=== PATIENT | female | born 1970 | race African-American/Black ===

== ENCOUNTER 2021-09-23 12:41 | Outpatient (RCR) | payer BC, SELFPAY ==
--- NOTE | 2021-09-23 13:55 | OTOPEVAL ---
OCCUPATIONAL THERAPY INITIAL EVALUATION REPORT 09/23/21 Carol Ann referred to outpatient OT with bilateral forearm pain. Signs and symptoms are consistent with ulnar nerve irritation without evident muscle atrophy or paresthesias. Her biggest complaint is the intermittent zinging pains she gets with particular movements. Today she was educated on body mechanics and ergonomics to help restrict further nerve compression and irritation. She was also issued nerve glide exercises. Plan to have her implement the new body shop manager techniques and ergonomics in her daily life and at work over the course of the next month. We will follow up in a month to see the effectiveness of this intervention. Thank you for referring Carol Ann Ledbetter to [facility].? The patient is scheduled to be seen for therapy? 0-1x/week for 5 weeks. Please review, sign, date and return this plan of care CHAITANYA. I agree with and certify that the following plan of care is medically necessary. Referring Physician Date Referring Provider: Juan Carlos Sarabia MD *OT Outpatient Evaluation Start: 09/23/21 12:46 Evaluation Information Problem Diagnosis Chronic bilateral forearm aching and weakness Onset ~2.5 years Subjective Information Patient reports bilateral Query Text:As Reported By Patient/ forearm pain that comes and Family goes - will be a two week flair up of pain and then it will go away. 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 She reports not using any wrist supports or having an ergonomic set up at her desk at home or at school. She reports no trauma to the arms or neck and reports no numbness. States her pains are quick sharp, lightning, zings pointing to the anterior forearm near the wrist and up to the elbow. 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
--- NOTE | 2021-10-24 16:04 | PCOTNOTE ---
Patient called & cancelled scheduled appointment this date. She left a voicemail 10 min after her appt time to say she wasn't going to be able to make it.
--- NOTE | 2021-10-30 09:21 | OTOPDC ---
OCCUPATIONAL THERAPY DISCHARGE NOTIFICATION 10/30/21 Patient:Carol Ann Ledbetter Date of :1970 Patient has not returned for any further treatments since her initial evaluation on 09/23/2021, therefore she will be discharged at this time. The goals have not been assessed. Thank you for referring this patient to [facility]. Please review, sign, date and return this discharge summary CHAITANYA. I have been updated about the patient's current status and I agree with discharge from the above service at this time. Referring Physician Date Referring Provider: Juan Carlos Sarabia MD
== END 2021-10-31 08:50 | disposition home or self-care (01) ==
LOC: ANHOT 12:41
PROVIDERS: PCP Internal Medicine; Referring Provider Plastic Surgery; Visit Provider Plastic Surgery
DX: R53.1 Weakness (principal); M79.632 Pain in left forearm; M79.631 Pain in right forearm
CPT/HCPCS: 97110; 97165; 99199

== ENCOUNTER 2022-03-09 00:11 | Day surgery (SDC) | payer BC, SELFPAY ==
[2022-02-20 16:03] VITALS: BMI 33.3
[2022-03-09 12:04] VITALS: BP 135/90; PULSE 70; RESP 18; TEMP 36; O2SAT 99
[2022-03-09] MEDS: LACTATED RINGERS 1,000 ML 150 ML IV CONT (12:15)
--- NOTE | 2022-03-09 12:47 | WPDANESEPPF ---
Anes - Initial Pre Proc Eval Procedure: Operation Date: 03/09/22 13:30 Proposed Procedures p Screening Colonoscopy - Rivas Velásquez MD Date/Time: 03/09/22 12:47 Surgeon: Rivas Velásquez MD Pre Op Diagnosis: neoplasm screening Patient Data Age: 51 Gender: F Height: 1.65 m Weight: 90.2 kg Last Vital Signs Temp 96.8 F L 03/09/22 12:04 Pulse 70 03/09/22 12:04 Resp 18 03/09/22 12:04 BP 135/90 03/09/22 12:04 Pulse Ox 99 03/09/22 12:04 O2 Del Method Room Air 03/09/22 12:04 Allergies Allergy/AdvReac Type Severity Reaction Status Date / Time metronidazole [From Flagyl] Allergy Intermediate Rash Verified 03/09/22 12:02 Home Medications Medication Instructions Recorded Confirmed Type cholecalciferol (vitamin D3) 25 25 mcg PO DAILY 11/13/21 03/09/22 History mcg (1,000 unit) capsule fluticasone propionate 50 1 spray intranasal BID 11/13/21 03/09/22 History mcg/actuation nasal spray,suspension (Flonase Allergy Relief) montelukast 10 mg tablet 10 mg PO DAILY 11/13/21 03/09/22 History vitamin B complex (B 1 tablet PO DAILY 11/13/21 03/09/22 History Complex-Vitamin B12 tablet) triamterene 37.5 1 cap PO DAILY #90 caps 02/26/22 03/09/22 Rx mg-hydrochlorothiazide 25 mg capsule azithromycin 250 mg tablet 250 mg PO DIRECTED #6 tabs 03/05/22 03/09/22 Rx cetirizine 10 mg tablet 10 mg PO DAILY PRN allergy 03/05/22 03/09/22 Rx symptoms #90 tabs methylprednisolone 4 mg tablets in See Rx Instructions PO PER PKG DIR 03/05/22 03/09/22 Rx a dose pack (Medrol (Sathish)) #21 ea Patient hx anesthesia problems: none Family hx anesthesia problems: none Results Review: All pre-operative results and documents have been reviewed as part of the pre-operative evaluation. [facility] Past Medical History Medical History (Updated 03/05/22 @ 16:38 by Sylvia Carranza DO) HTN (hypertension) Seasonal allergies Family History Family History (Updated 11/13/21 @ 15:53 by Brianna Cortez MA) Mother Diabetes mellitus Hypertension Heart disease Father Lupus Grandparent Carcinoma of colon Diabetes mellitus Hypertension Heart disease Cerebrovascular accident Sibling Hypertension Social History Social History (Updated 11/13/21 @ 15:56 by Brianna Cortez MA) Smoking status: Never smoker Alcohol intake: current Drinks per week: 4 Alcohol use details: Drink on weekends Substance use: never Substance use type: does not use Living arrangements: with family 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 Informed Consent: The patient's anesthetic plan and its attendant risks and benefits were discussed with the patient/family/POA. Questions were solicited and answers provided to the satisfaction of the patient/family/POA.
--- NOTE | 2022-03-09 13:35 | PM.HPGS ---
History of Present Illness History of Present Illness Consent: Risks, benefits, and alternatives have been discussed and questions answered. Patient agrees to proceed with procedure. Chief complaint: neoplasm screening Narrative: Carol Ann Ledbetter is a 51 year old female here for screening colonoscopy (she had one in her 20's but for gi issues) Review of Systems Constitutional: Constitutional: Denies headache(s) and Denies weakness Eyes: Eyes: Denies blurry vision ENT: Reports Normal hearing present, Denies headache(s) and Denies neck pain Cardiovascular: Cardiovascular: Denies chest pain and Denies dyspnea Respiratory: Respiratory: Denies dyspnea Gastrointestinal: Gastrointestinal: Reports no additional gastrointestinal complaints Genitourinary: Genitourinary: Denies dysuria Musculoskeletal: Musculoskeletal: Denies neck pain Integumentary/Breasts: Skin/Breast: Denies dry skin Neurologic: Reports Normal hearing present, Denies headache(s) and Denies weakness Psychiatric: Psychiatric: Denies anxiety Endocrine: Endocrine: Denies change in body appearance Hematologic/Lymphatic: Hematologic/Lymphatic: Denies easy bleeding Allergic/Immunologic: Allergic/Immunologic: Denies urticaria PMFSH Past Medical History Medical History (Updated 03/05/22 @ 16:38 by Sylvia Carranza DO) HTN (hypertension) Seasonal allergies Family History Family History (Updated 11/13/21 @ 15:53 by Brianna Cortez MA) Mother Diabetes mellitus Hypertension Heart disease Father Lupus Grandparent Carcinoma of colon Diabetes mellitus Hypertension Heart disease Cerebrovascular accident Sibling Hypertension Social History Social History (Updated 11/13/21 @ 15:56 by Brianna Cortez MA) Smoking status: Never smoker Alcohol intake: current Drinks per week: 4 Alcohol use details: Drink on weekends Substance use: never Substance use type: does not use Living arrangements: with family 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 Gender identity (if verbalized by the patient): Female Spiritual care concerns: No Agree to blood products: Yes Meds Home Medications and Allergies Home Medications Medication Instructions Recorded Confirmed Type cholecalciferol (vitamin D3) 25 25 mcg PO DAILY 11/13/21 03/09/22 History mcg (1,000 unit) capsule fluticasone propionate 50 1 spray intranasal BID 11/13/21 03/09/22 History mcg/actuation nasal spray,suspension (Flonase Allergy Relief) montelukast 10 mg tablet 10 mg PO DAILY 11/13/21 03/09/22 History vitamin B complex (B 1 tablet PO DAILY 11/13/21 03/09/22 History Complex-Vitamin B12 tablet) triamterene 37.5 1 cap PO DAILY #90 caps 02/26/22 03/09/22 Rx mg-hydrochlorothiazide 25 mg capsule azithromycin 250 mg tablet 250 mg PO DIRECTED #6 tabs 03/05/22 03/09/22 Rx cetirizine 10 mg tablet 10 mg PO DAILY PRN allergy 03/05/22 03/09/22 Rx symptoms #90 tabs methylprednisolone 4 mg tablets in See Rx Instructions PO PER PKG DIR 03/05/22 03/09/22 Rx a dose pack (Medrol (Sathish)) #21 ea Allergies Allergy/AdvReac Type Severity Reaction Status Date / Time metronidazole [From Flagyl] Allergy Intermediate Rash Verified 03/09/22 12:02 Vital Signs Vital Signs - 24 hr 03/09/22 12:04 Temperature 96.8 F L Pulse Rate 70 Respiratory Rate 18 Blood Pressure 135/90 Pulse Oximetry 99 Oxygen Delivery Room Air Exam Const: General: comfortable and no acute distress HENMT: Face/Nose/Sinus: Normal nares present Eyes: General: appearance normal, both eyes and all related structures Neck: Neck: no JVD Resp: Auscultation: clear to auscultation bilaterally Cardio: Rate: regular rate Rhythm: regular rhythm GI: Inspection: non-distended GI Palp: Yes Soft to palpation Skin: General skin exam: normal color Neuro: General: gait normal Speech: normal speech Extrem: General: normal to inspection Psych:
[2022-03-09 13:53] VITALS: BP 136/78; PULSE 66; RESP 17; O2SAT 100
[2022-03-09 14:03] VITALS: BP 140/90; PULSE 65; RESP 13; O2SAT 100
[2022-03-09 14:11] VITALS: BP 142/93; PULSE 63; RESP 18; O2SAT 100
== END 2022-03-09 14:20 | disposition home or self-care (01) ==
PROVIDERS: PCP Family Medicine; Visit Provider Internal Medicine Gastroenterology
PROC: 0DJD8ZZ Inspection of Lower Intestinal Tract, Via Natural or Artificial Opening Endoscopic (ICD-10-PCS; CPT 45378; principal; 2022-03-09 13:30)
DX: Z12.11 Encounter for screening for malignant neoplasm of colon (principal); I10 Essential (primary) hypertension; E66.9 Obesity, unspecified; Z68.33 Body mass index [BMI] 33.0-33.9, adult
CPT/HCPCS: 45378; J2704; J7120

== ENCOUNTER 2022-06-22 14:08 | Outpatient (CLI) | payer BC, SELFPAY ==
[2022-06-22 15:29] LABS: Kit Draw Collected
== END 2022-06-22 14:09 | disposition home or self-care (01) ==
LOC: ANHGOSHLAB 14:10
PROVIDERS: PCP Family Medicine; Visit Provider Family Medicine
DX: I10 Essential (primary) hypertension (principal); E66.9 Obesity, unspecified; Z79.899 Other long term (current) drug therapy
CPT/HCPCS: 36415

== ENCOUNTER 2023-08-31 08:55 | Outpatient (CLI) | payer SELFPAY ==
--- NOTE | ~2023-08-31 | XR_ITS ---
AP and lateral views of the right hip Clinical history: Pain Findings: No acute fracture or dislocation is seen. Osseous alignment is anatomic. Right hip joint is preserved. Soft tissues are unremarkable. Impression: No significant abnormality is seen. Reviewed, dictated and finalized at location M. Impression: No significant abnormality is seen.
== END 2023-08-31 08:56 ==
LOC: GOSHIMG 08:56
PROVIDERS: PCP Family Medicine; Visit Provider Family Medicine
DX: M25.551 Pain in right hip (principal)
CPT/HCPCS: 73502

== ENCOUNTER 2023-09-01 13:23 | Outpatient (CLI) | payer BC, SELFPAY ==
--- NOTE | ~2023-09-01 | CT_ITS ---
EXAMINATION: CT hip RT wo con DATE: 09/01/2023 13:35 INDICATION: Right hip pain. TECHNIQUE: Computed tomography (CT) of the right hip was performed without intravenous contrast. Auto mated exposure control and iterative reconstruction technique were employed. The dose-length product was 442.02 mGy-cm. COMPARISON: Right hip radiographs 08/31/2023 FINDINGS: Bone alignment is normal. No fracture. There is moderate osteoarthritis of right sacroiliac joint. There is mild right hip osteoarthritis. IMPRESSION: 1. Mild right hip osteoarthritis. Reviewed, dictated and finalized at location E.
== END 2023-09-01 13:24 ==
LOC: GOSHIMG 13:24
PROVIDERS: PCP Family Medicine; Visit Provider Family Medicine
DX: M16.11 Unilateral primary osteoarthritis, right hip (principal)
CPT/HCPCS: 73700

== ENCOUNTER 2024-01-19 12:27 | Outpatient (CLI) | payer BC, SELFPAY ==
--- NOTE | ~2024-01-19 | MR_ITS ---
EXAMINATION: MR hip RT wo con DATE: 01/19/2024 14:06 INDICATION: Right hip osteoarthritis presenting with right hip pain TECHNIQUE: Magnetic resonance imaging (MRI) of the right hip was performed without intravenous contr ast. Sequences included full-field axial PD-weighted FS FSE and T1-weighted FSE, coronal of the pelvi s with PD-weighted FS FSE, T2-weighted FSE and T1-weighted FSE, small field of view of the right hip with axial PD-weighted FS FSE, sagittal PD-weighted FS FSE, coronal PD-weighted FS FSE and coronal T2 weighted FSE. Additional radial T1-weighted FGR oriented orthogonal to the acetabular rim were obt ained for evaluation of the labrum. COMPARISON: CT dated 09/01/2023 FINDINGS: Bones/labrum/cartilage: Alignment is normal. No fracture, avascular necrosis or pathologic marrow replacing process. There i s mild increased intrasubstance signal at the base of the superolateral labrum with mucoid degenerati on. Articular cartilage is normal. Fluid: Symmetric physiologic amount of fluid within both hip joints. Soft tissues: Normal and symmetric muscle bulk and signal in the pelvis and visualized proximal thighs. Mild right gluteus minimus bursitis with moderate tendinopathy without discrete tear at the right gluteus medius minimus tendon The bilateral iliopsoas tendons, remaining bilateral gluteal tendons and bilateral pr oximal hamstring tendons are normal. Limited evaluation of visceral organs of the pelvis is otherwise unremarkable. No pathologically enlarged pelvic/inguinal lymphadenopathy. IMPRESSION: 1. Mild right gluteus minimus bursitis and moderate right gluteus minimus tendinopathy without discre te tear. 2. Mild mucoid degeneration to superolateral right acetabular labrum without definitive tear. Reviewed, dictated and finalized at location A. 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 Mild right gluteus minimus bursitis and moderate right gluteus minimus tendi nopathy without discrete tear. 2. Mild mucoid degeneration to superolateral right acetabular labrum without de finitive tear.
== END 2024-01-19 12:28 | disposition home or self-care (01) ==
LOC: GOSHIMG 12:27
PROVIDERS: PCP Family Medicine; Visit Provider Family Medicine
DX: M16.11 Unilateral primary osteoarthritis, right hip (principal)
CPT/HCPCS: 73721

== ENCOUNTER 2024-06-05 11:37 | Outpatient (CLI) | payer BC, SELFPAY ==
--- OUTSIDE RECORDS SUMMARY | 2024-06-05 13:13 | XMS_ITS | Clinical Summary ---
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 Role Phone Unavailable Primary Care Provider Unavailabl e Social History Tobacco Use Types Packs/Day Years Used Date Smoking Tobacco: Never Assessed Comments Unknown Sex and Gender Information Value Date Recorded Sex Assigned at Not on file Legal Sex Female 4:42 PM CDT Gender Identity Not on file Sexual Orientation Not on file Plan of Treatment Health Maintenance Due Date Last Done Comments Cervical Cancer Screening Pa p Smear (Age 30 to 64) Every 3 Years 1971 Colorectal Cancer Screening Colonoscopy (10 Years) 1971 Annual Physical 1974 Hepatitis C 1989 DTaP, Tdap and Td Vaccines ( 1 - Tdap) 1990 Hepatitis B Vaccines (1 of 3 - 19+ 3-dose series) 1990 Cervical Cancer Screening Pa p with HPV Testing (Age 30 to 64) Every 5 Years 2001 Cervical Cancer Screening with HPV 2001 Mammogram Screening 2011 Zoster Vaccines (1 of 2) 2021 COVID-19 Vaccine (2023-2 5 season) 2023 Meningococcal B Vaccine Aged Out No l onger eligible based on patient's age to complete this topic Meningococcal Vaccine Aged Out No aneta estephania eligible based on patient's age to complete this topic Pneumococcal Vaccine: Pediat rics (0 to 5 Years) and At-Risk Patients (6 to 49 Years) Aged Out No longer eligible b ased on patient's age to complete this topic RSV Immunizations Under 20 Months Aged Out No longer eligible based on patient's age to complete this topic
--- OUTSIDE RECORDS SUMMARY | 2024-06-05 13:13 | XMS_ITS | Clinical Summary ---
Author Organization 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 2 Active montelukast (SINGULAIR) 10 mg tablet Take 10 mg by mouth daily. 2 Active ibuprofen (MOTRIN) 200 mg tablet Take by mouth every 6 hours as needed. Active fluticasone propionate (FLONASE) 50 mcg/spray [place], Suspension nasal inhaler Administer 2 Sprays in each nostril daily. 0 Active ergocalciferol (VITAMIN D2) 50,000 unit capsule Take 50,000 Units by mouth every 7 days. 2 Active predniSONE (DELTASONE) 20 mg tabletIndicatio ns:Sore throat Take 1 Tablet (20 mg) by mouth 2 times daily with meals. 10 Tablet 2 Active Active Problems No known active problems Social History Tobacco Use Types Packs/Day Years Used Date Smoking Tobacco: Never Assessed Comments No Sex and Gender Information Value Date Recorded Sex Assigned at Not on file Legal Sex Female 8:42 AM CDT Gender Identity Not on file Sexual Orientation Not on file Last Filed Vital Signs Vital Sign Reading Time Taken Comments Blood Pressure 155/91 10/13/2021 4:54 PM CDT Pulse 81 10/13/2021 4:54 PM CDT Temperature 37.1 C (98.8 F) 10/13/2021 4:54 PM CDT Respiratory Rate 16 10/13/2021 4:54 PM CDT Oxygen Saturation 99% 10/13/2021 4:54 PM CDT Inhaled Oxygen Concentration - - Weight 90.7 kg (200 lb) 10/13/2021 4:54 PM CDT Height 165.1 cm (5' 5 ) 10/13/2021 4:54 PM CDT Body Mass Index 33.28 10/13/2021 4:54 PM CDT Plan of Treatment Health Maintenance Due Date Last Done Comments DTAP/TDAP/TD VACCINES (1 - Tdap) 1990 HEPATITIS B VACCINES (1 of 3 - 19+ 3-dose series) 1990 PAP SMEAR 2001 COLORECTAL SCREENING 2016 Colorectal Cancer Screening 2016 FIT-DNA Q 3 years 2016 FIT/FOBT Q 1 year 2016 Flex Sig/CT Colonography Q 5 years 2016 ZOSTER VACCINE (1 of 2) 2021 BREAST CANCER SCREENING 03/24/2022 03/24/19, 03/24/2021, 02/12/2020, Additional history exists INFLUENZA VACCINE (#1) 2023 Insurance [employer]
--- OUTSIDE RECORDS SUMMARY | 2024-06-05 13:13 | XMS_ITS | Clinical Summary ---
Author Organization [facility] [employer] Address [address] [place] [address] Care Team Providers Care Sales Receptionist Name Role Phone Altaf Yeung MD Primary Care Provider Raya sales Source Comments [facility] [employer]non-owned Affiliates and Associated Physician Practices is amultiple site organization consisting of ambulatory clinics and hospital sitesin [place], [place], [place] and [place]. This disclosure is being madepursuant to the Care Everywhere program and may not contain all information available regarding this patient. Last updated 17.[facility] [employer] Allergies No known active allergies Medications * Be aware that medications may not be up to date on this document. Alwaysverify current medications with the patient. ibuprofen (MOTRIN) 200 MG tablet Take by mouth every 6 hours as needed for Pain Active Aspirin-Salicyl amide-Caffeine (BC HEADACHE POWDER PO) Active fluticasone propionate (FLONASE) 50 MCG/ACT nasal spray [place] 2 sprays into each nostril once daily 16 g 3 04/05/2019 Active Family History Medical History Relation Name Comments Arthritis - Rheumatoid Mother Hypertension Mother Relation Name Status Comments Mother Social History Tobacco Use Types Packs/Day Years Used Date Smoking Tobacco: Never Smokeless Tobacco: Never Alcohol Use Standard Drinks/Week Comments Yes 0 (1 standard drink = 0.6 oz pur e alcohol) AUDIT-C Answer Date Recorded Frequency of Alcohol Consumption Monthly or less 04/05/2019 Average Number of Drinks 3 or 4 020 Frequency of Binge Drinking Not on file 03/25 Comments Unknown Sex and Gender Information Value Date Recorded Sex Assigned at Not on file Legal Sex Female 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 Gender Identity Not on file Sexual Orientation Not on file Last Filed Vital Signs Vital Sign Reading Time Taken Comments Blood Pressure 125/90 04/05/2019 1:21 PM RETAIL CLIENT MANAGER Pulse 66 04/05/2019 1:21 PM RETAIL CLIENT MANAGER Temperature - - Respiratory Rate - - Oxygen Saturation - - Inhaled Oxygen Concentration - - Weight 85.7 kg (189 lb) 04/05/2019 1:21 PM RETAIL CLIENT MANAGER Height 165.1 cm (5' 5 ) 04/05/2019 1:21 PM RETAIL CLIENT MANAGER Body Mass Index 31.45 04/05/2019 1:21 PM RETAIL CLIENT MANAGER Plan of Treatment Health Maintenance Due Date Last Done Comments COLOGUARD (AGES 45-75) - COL ON CA SCREENING 1971 COLON MONITORING 1971 COLONOSCOPY - COLON CA SCREENING 1971 CT COLONOGRAPHY - COLON CA SCREENING 1971 Colorectal Cancer Screening 1971 FIT - COLON CA SCREENING 1971 FLEX SIG - COLON CA SCREENING 1971 LIPID TESTING 1971 MAMMOGRAM 1971 HIV SCREENING 1986 HEPATITIS C SCREENING 04/04/1989 DTAP/TDAP/TD VACCINES (1 - Tdap) 1990 HEPATITIS B VACCINE (1 of 3 - 19+ 3-dose series) 1990 SCREENING FOR DIABETES 04/05/2019 PNEUMOCOCCAL VACCINE 50+ (1 of 1 - PCV) 2021 ZOSTER VACCINE (1 of 2) 2021 COVID-19 VACCINE (1 - 2023-2 5 season) 2023 DEPRESSION SCREENING 02/23/2024 INFLUENZA VACCINE (Season Ended) 2024 HIB VACCINE Aged Out No longer eligi ble based on patient's age to complete this topic HPV VACCINE Aged Out No longer eligi ble based on patient's age to complete this topic MENINGOCOCCAL (Group B) VACC INE SHARED DECISION-MAKING Aged Out No longer eligibl e based on patient's age to complete this topic MENINGOCOCCAL GROUPS A/C/Y/W VACCINE Aged Out No longer eligible b ased on patient's age to complete this topic PNEUMOCOCCAL VACCINE Aged Out No long er eligible based on patient's age to complete this topic Insurance [employer] Care Teams Sales Receptionist Relationship Specialty Start Date End Date Altaf Yeung MD PCP - General 03/28/19
[2024-06-05 19:08] LABS: Hematocrit 43.6 % (37.0-47.0); Hemoglobin 13.3 g/dL (12.0-15.0); Mean Corpuscular HGB Conc 30.5 g/dl (32-36); Mean Platelet Volume 11.6 fl (7.4-10.4); Platelet Count Result 276 k/mm3 (150-375); Red Blood Count 4.59 M/mm3 (4.2-5.4); Red Cell Distribution Width 14.4 % (11.5-14.5); White Blood Count 6.5 K/mm3 (4.5-10.0)
[2024-06-05 20:41] LABS: Alanine Aminotransferase 19 U/L (6-35); Albumin Level 4.2 g/dL (3.5-5.1); Alkaline Phosphatase 85 U/L (38-126); Anion Gap 5 mmol/L (4-12); Aspartate Amino Transferase 51 U/L (14-36); Bilirubin,Total 0.8 mg/dL (0.2-1.3); Blood Urea Nitrogen 13 mg/dL (7-17); Calcium 8.9 mg/dL (8.4-10.2); Carbon Dioxide 31 mmol/L (22-30); Chloride 101 mmol/L (98-107); Cholesterol 180 mg/dL (0-200); Estimated Glomerular Filt Rate 56; Glucose 79 mg/dL (65-110); HDL Direct 65 mg/dL; Potassium 3.8 mmol/L (3.4-5.0); Sodium 137 mmol/L (137-145); Triglycerides 73 mg/dL (<150)
[2024-06-05 20:52] LABS: LDL Cholesterol Direct 91 mg/dL
[2024-06-05 20:59] LABS: Vitamin D 25 Hydroxy 30.9 ng/mL
== END 2024-06-05 11:38 | disposition home or self-care (01) ==
LOC: ANHGOSHLAB 11:38
PROVIDERS: PCP Family Medicine; Visit Provider Family Medicine
DX: E78.5 Hyperlipidemia, unspecified (principal); I10 Essential (primary) hypertension; E55.9 Vitamin D deficiency, unspecified; E66.9 Obesity, unspecified; Z79.899 Other long term (current) drug therapy
CPT/HCPCS: 36415; 80053; 80061; 82306; 84443; 85027